=== PATIENT | male | born 1980 | race Caucasian/White ===

== ENCOUNTER 2018-12-31 04:47 | Emergency (ER) | payer OTHER ==
[2018-12-31 05:02] VITALS: BP 153/98; PULSE 95; BMI 38.0
--- NOTE | 2018-12-31 05:14 | PDOC ---
History of Present Illness - General Chief Complaint: Laceration Stated Complaint: HIT IN HEAD WITH HOSE WHILE WORKING Time Seen by Provider: 12/31/18 05:05 History Source: Patient, Co-worker - History of Present Illness Initial Comments: 12/31/18 05:09 [id number] noPMH presents 1 hr after laceration to forehead. 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 No LOC, no other trauma, no c/o vision blurring, no headache, no nausea/vomiting. Last tetanus 2015, also for job-related injury. Past History - Past Medical History Allergies/Adverse Reactions: Allergies Allergy/AdvReac Type Severity Reaction Status Date / Time No Known Allergies Allergy Verified 12/31/18 04:50 Home Medications: Ambulatory Orders NK [No Known Home Medication] 12/31/18 COPD: No Other medical history: DENIES - Immunization History Immunization Up to Date: Yes - Suicide/Smoking/Psychosocial Hx Smoking History: Never smoked Have you smoked in the past 12 months: No Information on smoking cessation initiated: No Hx Alcohol Use: No Drug/Substance Use Hx: No Review of Systems - Review of Systems All Other Systems: Reviewed and Negative *Physical Exam - Vital Signs Last Vital Signs Temp Pulse Resp BP Pulse Ox 95 H 16 153/98 97 12/31/18 04:53 12/31/18 04:53 12/31/18 04:53 12/31/18 04:53 - Physical Exam Comments: 12/31/18 05:11 NAD, well appearing 2cm stellate laceration just above R eyebrow EOMI, CHARY no orbital rim tenderenss A&O x 3. Moderate Sedation - Procedure Monitoring Vital Signs: Procedure Monitoring Vital Signs Temperature Pulse Rate 95 H 12/31/18 04:53 Respiratory Rate 16 12/31/18 04:53 Blood Pressure 153/98 12/31/18 04:53 O2 Sat by Pulse Oximetry (%) 97 12/31/18 04:53 Procedures - Laceration/Wound Repair Right Face Wound Length: to 2.5 cm Wound Explored: clean, no foreign body present Wound's Depth, Shape: superficial, stellate Irrigated w/ Saline: Yes Betadine Prep: Yes Anesthesia: 2% Lidocaine w/ Epi Amount of Anesthetic (ccs): 3 Wound Debrided: minimal Wound Repaired With: Sutures Suture Size/Type: 5:0, nylon Number of Sutures: 7 Layer Closure: No Sterile Dressing Applied: Yes Progress: 12/31/18 06:01 procedure tolerated well without complications. pt counseled regarding scar formation. Medical Decision Making - Medical Decision Making 12/31/18 05:12 [id number] w/ laceration to forehead - lac repair - tetanus UTD - passes HCT rules. *DC/Admit/Observation/Transfer Diagnosis at time of Disposition: Laceration - Discharge Dispostion Disposition: HOME Condition at time of disposition: Stable - Referrals - Patient Instructions Printed Discharge Instructions: DI for Laceration Repair Additional Instructions: - Keep wound clean and dry for 24 hours. - after 24hours, you can was with soap and water normally. - NO SUBMERSION. no swimming/baths. No washing dishes for lacerations of hands/ arms, no manicures/pedicures if that area of your body id affected, etc. - return for suture removal as instructed. - Return to ER for: Fever > 100.4, significant redness/swelling of wound, pus drainage from wound. Return for suture removal in 5 days. You may develop sympopms of a minor concussion: fogginess, mild headache, mild nausea without any vomiting, mild difficulty concentrating. Return to ER for severe symptoms of concussion: vomiting 2 or more times, severe nausea unable to eat, severe headache, vision change, numnbess/tingling/paralysis to a part of your body, fainting, seizure. - Post Discharge Activity Forms/Work/School Notes: Back to Work
[2018-12-31] MEDS ORDERED: LIDOCAINE 2%/EPINEPHRINE 1:100000 (50 ML MD VIAL) INF ONE (05:15)
[2018-12-31] MEDS ORDERED: LIDO 2%/EPI 1:200000 PRESRVFRE (20 ML SDVIAL) ONE (05:16)
== END 2018-12-31 06:08 | disposition home or self-care (01) ==
LOC: FER 04:47
PROC: 0HQ1XZZ Repair Face Skin, External Approach (ICD-10-PCS; principal; 2018-12-31)
DX: S01.81XA Laceration without foreign body of other part of head, initial encounter (principal); W20.8XXA Other cause of strike by thrown, projected or falling object, initial encounter; Y93.89 Activity, other specified; Y92.89 Other specified places as the place of occurrence of the external cause; Y99.0 Civilian activity done for income or pay
CPT/HCPCS: 99281-25